=== PATIENT | male | born 1990 | race Caucasian/White ===

== ENCOUNTER 2023-08-02 11:05 | Emergency (ER) | payer MEDICAID, SELFPAY ==
[2023-08-02 11:05] VITALS: BP 133/77; PULSE 80; RESP 16; TEMP 37; O2SAT 98
--- NOTE | 2023-08-02 11:12 | ED.EXTPRO ---
HPI - Extremity Problem General Chief complaint: Extremity Problem,Nontraumatic Stated complaint: left ankle pain; blisters on both feet Time Seen by Provider: 08/02/23 11:12 History of Present Illness HPI Narrative: patient is a 32-year-old male here with bilateral foot pain. Patient states that he has been struggling with similar pains for the last 1 month. He is currently homeless and on and ambulates to different areas on foot. He notes that due to the cold and precipitation he has had difficulty keeping his feet dry and warm. He has been to numerous other hospitals for this same thing, they have told him he likely has trench foot as well as some blisters from excessive walking. They have told him to keep dry and he has been bouncing around to various shelters. He notes that last night he started noticing some redness over the bilateral tops of his feet. This worried him and prompted him to come to the emergency department here. He notes associated pain in bilateral feet, worse with walking. He has been using multiple socks, portions of tin foil warming blankets in between layers of socks but has continued to have difficulties. Denies any recent trauma. No fever or chills. Related Data Home Medications Medication Instructions Recorded Confirmed bictegravir 30 mg-emtricitabine 1 tablet PO DAILY 08/02/23 08/02/23 120 mg-tenofovir alafenam 15 mg tablet (Biktarvy) Allergies Allergy/AdvReac Type Severity Reaction Status Date / Time dapsone Allergy Unknown Verified 08/02/23 11:36 Review of Systems Review of Systems: All systems reviewed & are unremarkable except as noted in HPI and below Exam Narrative: GENERAL: Well-appearing, well-nourished, and in no acute distress. HEAD: Normocephalic, atraumatic. EYES: PERRLA and EOMI. ENT: Nares clear. Mucous membranes moist. NECK: Supple. CHEST: Clear to auscultation. No respiratory distress. HEART: Regular rate and rhythm. Normal peripheral pulses. ABDOMEN: Soft, nontender, nondistended. EXTREMITIES: Normal range of motion. No edema. SKIN: Bilateral feet appear to have trench foot with lighted moist skin, some scattered closed blistering present at pressure points where his shoe touches like the base of his 1st metatarsal. Erythema present over bilateral tops of feet which seem to stop at the ankle. Warm to touch, no discharge. NEURO: No focal deficits. Alert and oriented x3. PSYCH: Normal mood and affect. Course Course Emergency Course: Chart review performed. No prior visits here in our system. Triage vitals grossly normal. Patient seen and evaluated. Appears to have trench foot. Concern for possible developing cellulitis at the tops of each foot. Lengthy discussion regarding keeping feet clean, warm and dry. Will give toradol, tylenol and start on keflex. To provide resource packet. Patient had some pain improvement with medications. First dose of antibiotics given here. Will discharge on Keflex. The results of pertinent diagnostic studies and exam findings were discussed. The patient?s provisional diagnosis and plan of care were discussed with the patient and present family. The patient and/or present family expressed understanding of the diagnosis and plan. The nurse was instructed to provide written instructions and appropriate follow-up information. The patient understands their need and responsibility to obtain additional follow-up as instructed. The risks of medications administered and prescribed were discussed with the patient and family present. Vital Signs Vital signs: Vital Signs Temperature 98.6 F 08/02/23 11:05 Pulse Rate 80 08/02/23 11:05 Respiratory Rate 16 08/02/23 11:05 Blood Pressure 133/77 08/02/23 11:05 Pulse Oximetry 98 08/02/23 11:05 Oxygen Delivery Room Air 08/02/23 11:05 Temperature 98.6 F 08/02/23 11:05 Pulse Rate 75 08/02/23 13:10 Respiratory Rate 18 08/02/23 13:10 Blood Pressure 131/75
[2023-08-02] MEDS: ACETAMINOPHEN 325 MG TABLET 650 MG PO (12:15)
[2023-08-02] MEDS: CEPHALEXIN 500 MG CAPSULE PO (12:15)
[2023-08-02] MEDS: KETOROLAC 30 MG/ML VIAL (*BKC) 15 MG IM (12:16)
[2023-08-02 13:10] VITALS: BP 131/75; PULSE 75; RESP 18; O2SAT 100
--- NOTE | 2023-08-02 13:49 | PC.NURSE ---
SANDWICH TRAY, DRY SOCKS, AND RESOURCES WERE PROVIDED TO PT UPON DC. PT IS AMBULATORY WITHOUT DIFFICULTY. PT DENIES ANYONE TO CALL FOR HELP.
== END 2023-08-02 13:10 | disposition home or self-care (01) ==
PROVIDERS: Emergency Provider Student in an Organized Health Care Education/Training Program
DX: L03.116 Cellulitis of left lower limb (principal); L03.115 Cellulitis of right lower limb; T69.029D Immersion foot, unspecified foot, subsequent encounter; Z59.00 Homelessness unspecified; X31.XXXD Exposure to excessive natural cold, subsequent encounter
CPT/HCPCS: 96372; 99283; A9270; J1885

== ENCOUNTER 2023-08-03 04:43 | Emergency (ER) | payer MEDICAID, SELFPAY ==
[2023-08-03 04:52] VITALS: BP 116/84; PULSE 62; RESP 18; TEMP 36.3; O2SAT 100
[2023-08-03 04:58] VITALS: BP 116/84; PULSE 64; RESP 18; O2SAT 100
--- NOTE | 2023-08-03 05:19 | ED.EXTPRO ---
HPI - Extremity Problem General Chief complaint: Extremity Problem,Nontraumatic Stated complaint: ankle pain History of Present Illness HPI Narrative: Patient is a 32 year old male here with foot pain. He was seen here for the same yesterday by myself. He is homeless, has had difficulty keeping clean and dry, thus his feet have been painful for the last 1 month. He noted some foot redness yesterday, was diagnosed with possible early cellulitis and discharged home with antibiotic prescription. Due to his homelessness he has had difficulty filling his antibiotic prescription. He took an ambulance here for continued pain. No fever or chills. No worsening of his foot discomfort or skin changes. He continues to have no where to go and difficulty knowing how to fill his prescriptions or seek perminant housing. Related Data Home Medications Medication Instructions Recorded Confirmed bictegravir 30 mg-emtricitabine 1 tablet PO DAILY 08/02/23 08/02/23 120 mg-tenofovir alafenam 15 mg tablet (Biktarvy) Allergies Allergy/AdvReac Type Severity Reaction Status Date / Time dapsone Allergy Unknown Verified 08/03/23 05:09 Review of Systems Review of Systems: All systems reviewed & are unremarkable except as noted in HPI and below Exam Narrative: GENERAL: Well-appearing, well-nourished, and in no acute distress. HEAD: Normocephalic, atraumatic. EYES: PERRLA and EOMI. ENT: Nares clear. Mucous membranes moist. NECK: Supple. CHEST: Clear to auscultation. No respiratory distress. HEART: Regular rate and rhythm. Normal peripheral pulses. ABDOMEN: Soft, nontender, nondistended. EXTREMITIES: Normal range of motion. No edema. SKIN: Warm, dry, significantly improving overall skin changes on bilateral feet. Improving erythema. NEURO: No focal deficits. Alert and oriented x3. PSYCH: Normal mood and affect. Course Course Emergency Course: Chart review performed. Patient is a 32 year old here with foot pain. Was seen by myself yesterday for the same. He is homeless and unable to fill his medications. Triage vitals normal. Patient seen and evaluated. Exam significantly improved from yesterday. His morning dose of keflex given as well as tylenol for pain. He was provided with our hospital's resource packet yesterday. No additional resources available for patient at this size hospital. Continue to recommend initiation of the antibiotics. May use OTC tylenol or ibuprofen for pain. Keep feet warm and dry. Minimize walking as possible. The results of pertinent diagnostic studies and exam findings were discussed. The patient?s provisional diagnosis and plan of care were discussed with the patient and present family. The patient and/or present family expressed understanding of the diagnosis and plan. The nurse was instructed to provide written instructions and appropriate follow-up information. The patient understands their need and responsibility to obtain additional follow-up as instructed. The risks of medications administered and prescribed were discussed with the patient and family present. Vital Signs Vital signs: Vital Signs Temperature 97.3 F L 08/03/23 04:52 Pulse Rate 62 08/03/23 04:52 Respiratory Rate 18 08/03/23 04:52 Blood Pressure 116/84 08/03/23 04:52 Pulse Oximetry 100 08/03/23 04:52 Oxygen Delivery Room Air 08/03/23 04:52 Temperature 97.3 F L 08/03/23 04:52 Pulse Rate 64 08/03/23 04:58 Respiratory Rate 18 08/03/23 04:58 Blood Pressure 116/84 08/03/23 04:58 Pulse Oximetry 100 08/03/23 04:58 Oxygen Delivery Room Air 08/03/23 04:58 Discharge Plan Discharge Clinical Impression: Cellulitis Qualifiers: Site of cellulitis: extremity Site of cellulitis of extremity: lower extremity Laterality: unspecified laterality Qualified Code(s): L03.119 - Cellulitis of unspecified part of limb Patient Disposition: Home, Self-Care Condition: Stable Instructions: Antibiotic Form, Cellu
[2023-08-03] MEDS: ACETAMINOPHEN 500 MG TABLET 1000 MG PO (05:27)
[2023-08-03] MEDS: CEPHALEXIN 500 MG CAPSULE PO (05:27)
--- NOTE | 2023-08-03 05:42 | PC.NURSE ---
patient medicated per order, see MAR. RN attempted to provide patient education regarding saving money on prescription by using [facility] through his cell phone. Patient states he did not receive any helpful resources yesterday when he was seen and he doesn't know what to do. Patient states he doesn't have a phone or anywhere to go stating that he walked to the area from [facility]. Dr. Garcia at bedside provided update and states his BLE look improved from her last assessment yesterday. Patient encouraged by RN to get medication prescription and to rest/elevate feet whenever possible.
--- NOTE | 2023-08-03 05:56 | PC.NURSE ---
Discharge instructions provided. patient again encouraged to fill and take his antibiotics to improve his BLE. Patient states to RN at time of discharge if I don't sign the discharge papers that means I'm not discharged and I can stay and take a nap? RN provided alternative to patient including staying in ED lobby while the winter weather passes and patient is able to use telephone in lobby or the phone supply chain associate to phone a ride. Patient given fresh set of hospital socks and ambulated while exiting the dept asking RN how do I walk with my foot like this? Patient again encouraged to pick up attendant prescription to help heal his BLE pain and redness including directions on how to use [facility] on his cell phone. Patient given sandwich, chips and milk per request after discharge as well as a warm blanket for comfort.
--- NOTE | 2023-08-03 10:40 | PCCCNOTE ---
Care Coordination was called to assist pt with transportation to a [facility] care as he is homeless. Pt has been seen 2 times in this ED for foot pain. His dx is cellulitis and was given Rx for antibiotics. Pt returned to ED after 2nd visit and states he does not have money to pay for meds. When CC spoke to pt he states he did not have an x-ray of ankle and that his issue was not correctly dx. Spoke to ED who states he can sign back into ED and Dr klein currently would evaluate him. Pt does not know where he wants to go, he does not want to go to [place] or [facility]. He did mention [facility] as they have helped him with housing in the past. Pt continues to say he wants to walk but can't due to unable to put wt on foot. Mulitple times the pt was informed he could sign back into the ED and a different provider would see him. He does not appear to want to do that and mentions fileing a lawsuit multiple times.
== END 2023-08-03 05:58 | disposition home or self-care (01) ==
PROVIDERS: Emergency Provider Student in an Organized Health Care Education/Training Program
DX: L03.119 Cellulitis of unspecified part of limb (principal); Z59.00 Homelessness unspecified
CPT/HCPCS: 99283; A9270